=== PATIENT | male | born 1940 | race Caucasian/White ===

== ENCOUNTER 2018-07-23 23:01 | Inpatient (IN) | END 2018-07-27 20:05 | disposition home or self-care (01) | DRG 381 ==

== ENCOUNTER 2018-08-10 14:45 | Inpatient (IN) | END 2018-08-14 19:15 | disposition home or self-care (01) | DRG 378 ==

== ENCOUNTER → 2019-03-10 | Outpatient (CLI) | payer MEDICARE, OTHER ==
[~2019-03-10] MED LIST: ACET650S25 PO; IOHEXOL 100 ML ONE; LORA1TAB PO; LOSA50TA14 PO; ONDA4TAB95 PO; PANT40TA3 PO; PANT40TA4 PO; SOD CHLORIDE 0.9% 100 ML ONE; SUCR1TAB35 PO
== END | disposition home or self-care (01) ==
LOC: C/S 10:38
PROVIDERS: ATTEND Family Medicine
DX: I25.10 Atherosclerotic heart disease of native coronary artery without angina pectoris (principal); E04.1 Nontoxic single thyroid nodule
CPT/HCPCS: 70498; Q9967